=== PATIENT | female | born 1975 | race Caucasian/White ===

== ENCOUNTER 2022-05-02 16:45 | Emergency (ER) | payer BC, SELFPAY ==
[2022-05-02 17:02] VITALS: BP 140/100; PULSE 94; RESP 18; TEMP 36.9; O2SAT 97; BMI 25.0
--- NOTE | 2022-05-02 17:17 | ECG_ITS ---
[facility] Test Date: 2022-05-02 Pat Name: Diamond Hunter Department: Room: Gender: Female Physically Impaired Teacher: : 1975 Requested By: Vick Kirk Order Number: [id number] Rufus MD: Demetrio Tay M.D. Measurements Intervals [place] Rate: 93 P: 46 UT: 169 QRS: -30 QRSD: 99 T: 24 QT: 338 QTc: 422 Interpretive Statements SINUS RHYTHM POSSIBLE LEFT ATRIAL ENLARGEMENT [-0.1mV P-WAVE IN V1/V2] BORDERLINE LEFT AXIS DEVIATION [QRS AXIS < -20] LOW QRS VOLTAGE IN PRECORDIAL LEADS [QRS DEFLECTION < 1.0 mV IN CHEST LEADS] PATTERN CONSISTENT WITH PULMONARY DISEASE No previous ECG available for comparison Electronically Signed On 05-03-2022 9:21:34 CDT by Demetrio Tay M.D. [email or web address]
--- NOTE | 2022-05-02 17:18 | XRR_ITS ---
PROCEDURE INFORMATION: Exam: XR Chest Exam date and time: 05/02/2022 5:45 PM Age: 46 years old Clinical indication: Pain; Other: Mid chest; Additional info: Chest pain TECHNIQUE: Imaging protocol: XR of the chest. Views: 1 view. COMPARISON: No relevant prior studies available. FINDINGS: Lungs: Unremarkable. No consolidation. Pleural spaces: Unremarkable. No pleural effusion. No pneumothorax. Heart/Mediastinum: Unremarkable. No cardiomegaly. Bones/joints: Unremarkable. XR/XR chest 1V portable 60013 IMPRESSION: No acute findings.
--- NOTE | 2022-05-02 17:19 | W.ED.CHESTPA ---
Documented by User: Vick Resendiz DO 05/12/22 06:53 HPI - Chest Pain General: Chief Complaint: Chest Pain Stated Complaint: Chest Pains And Weakness Blood Sugar High Time Seen by Provider: 05/02/22 17:11 Source: patient Mode of arrival: ambulatory Limitations: no limitations History of Present Illness: 46-year-old female diabetes patient complaining of lower chest and upper back pain. She is generally been tired had a headache. States her blood sugars have been elevated. Significant nausea but no vomiting or diarrhea. Denies medic easy melena hematemesis cough cramps dysuria urgency or frequency. Radiation of chest pain into the back. MD complaint: chest pain Onset (ago): hour(s) Timing of current episode: episodic Onset: during rest Pain location: substernal Pain radiation: back Severity: moderate Quality: sharp Relieving factors: nothing Exacerbating factors: nothing Associated symptoms: Reports dyspnea, nausea and other (Weakness); Deny abdominal pain, diaphoresis, fever(s), leg edema, palpitations, sense of impending doom, syncope or vomiting Treatment prior to arrival: none Review of Systems Const: Denies: fever(s), chills or diaphoresis ENMT: Denies: throat pain, ear or mastoid pain, nasal discharge or nasal congestion Card: Reports: chest pain; Denies: palpitations, edema, swelling of feet/ankles or syncope Resp: Reports: dyspnea; Denies: productive cough GI: Reports: nausea; Denies: abdominal pain or vomiting : Reports: dysuria; Denies: flank pain, difficulty voiding, urinary frequency or urinary urgency Skin/Breast: Denies: rash or pruritus [facility] ED PFSH: Medical History Diabetes mellitus Hyperlipidemia Hypertension Social History Smoking and tobacco status: former smoker Physical Exam Const: GENERAL APPEARANCE: cooperative and comfortable ORIENTATION/CONSCIOUSNESS: Yes awake, Yes oriented to person, Yes oriented to place and Yes oriented to time HENMT: COMMON NORMALS: normocephalic, atraumatic and hearing grossly normal bilaterally HEAD & SCALP: normocephalic and atraumatic Neck/C-Spine: COMMON NORMALS: no JVD Resp: COMMON NORMALS: normal respiratory effort, No retractions, No use of accessory muscles and clear to auscultation bilaterally AUSCULTATION: clear to auscultation bilaterally Cardio: COMMON NORMALS: no JVD, regular rate, regular rhythm and No murmurs present (Cardio) RATE: regular rate RHYTHM: regular rhythm GI: COMMON NORMALS: Soft to palpation and No hepatosplenomegaly present AUSCULTATION: Yes normoactive bowel sounds PALPATION: Yes Soft to palpation, No Tenderness to palpation present (GI), No Guarding due to palpation present (GI) and Yes No hepatosplenomegaly present : COMMON NORMALS: Yes no CVA tenderness BLADDER/KIDNEY EXAM: Yes no CVA tenderness Back/Pelvis: COMMON NORMALS: no CVA tenderness Extremity: COMMON NORMALS: normal to inspection, capillary refill normal, no clubbing, cyanosis or edema, no calf tenderness and no pedal edema Neuro: SENSORIUM/ORIENTATION: Yes oriented to person, Yes oriented to place and Yes oriented to time Skin: COMMON NORMALS: no rashes or lesions noted GENERAL SKIN EXAM: no rashes or lesions noted Course Vital Signs: Vital signs: Vital Signs Temperature 98.1 F 05/02/22 21:50 Pulse Rate 88 05/02/22 21:50 Respiratory Rate 18 05/02/22 21:50 Blood Pressure 127/79 05/02/22 21:50 Pulse Oximetry 99 05/02/22 21:50 MDM - Chest Pain Medical Decision Making Care signed out to Dr. Hopkins at change of shift. See final notes for diagnosis and disposition. Medical Records I reviewed the patient's medical records. Lab Data I reviewed the patient's lab results. : 05/02/22 17:35 05/02/22 17:35 Radiology Impressions Chest X-Ray 05/02/22 17:18 IMPRESSION: No acute findings. Foot X-Ray 05/02/22 18:19 IMPRESSION: 1. Negative for fracture or dislocation. 2. Distal Achilles tendon degenerative calcification. 3. Small calcified heel spur. Laboratory Results WBC 8.4 10^3/uL (4.0-10.0) 05/02/22 17:35 RBC 4.60 10^6/uL (4.1-5.3) 05/02/22 17:35 Hgb 13.2 g/dL (11.5-15.3) 05/02/22 17:35 Hct 39.6 % (37.0-47.0) 05/02/22 17:35 MCV 86.1 fl (81-99) 05/02/22 17:35 MCH 28.7 pg (28.0-34.0) 05/02/22 17:35 MCHC 33.3 g/dL (30.0-36.0) 05/02/22 17:35 RDW 13.0 % (12.1-15.1) 05/02/22 17:35 Plt Count 264 10^3/cmm (130-400) 05/02/22 17:35 MPV 10.3 fL (7.4-10.4) 05/02/22 17:35 Neut % (Auto) 68.3 % 05/02/22 17:35 Lymph % (Auto) 20.6 % 05/02/22 17:35 [place] % (Auto) 8.6 % 05/02/22 17:35 Eos % (Auto) 1.6 % 05/02/22 17:35 Baso % (Auto) 0.5 % 05/02/22 17:35 Neut # (Auto) 5.73 10^3/uL (1.8-7.7) 05/02/22 17:35 Lymph # (Auto) 1.7 10^3/uL (0.8-4.8) 05/02/22 17:35 [place] # (Auto) 0.7 10^3/uL (0.2-0.9) 05/02/22 17:35 Eos # (Auto) 0.1 10^3/uL (0.0-0.8) 05/02/22 17:35 Baso # (Auto) 0.0 10^3/uL (0.0-0.1) 05/02/22 17:35 Nucleated RBC % (auto) 0 % 05/02/22 17:35 Nucleated RBCs # 0.0 /100WBC 05/02/22 17:35 Specimen Type Arterial 05/02/22 17:15 Sample Site Brachial, left 05/02/22 17:15 ABG pH 7.43 (7.35-7.45) 05/02/22 17:15 ABG pCO2 38.4 mmHg (35-45) 05/02/22 17:15 ABG pO2 68.4 mmHg (80.0-100.0) L 05/02/22 17:15 ABG HCO3 25.3 mmol/L (22-26) 05/02/22 17:15 ABG O2 Saturation 93.2 05/02/22 17:15 ABG Base Excess 0.9 mmol/L (-2.0-2.0) 05/02/22 17:15 Dao Test N/a 05/02/22 17:15 A-a O2 Gradient 4.3 mmHg (5-10) L 05/02/22 17:15 Hematocrit 40.6 % (37-47) 05/02/22 17:15 Hgb O2 Saturation 91.9 % (95-100) L 05/02/22 17:15 Carboxyhemoglobin 0.3 %THgb (0.4-20.1) L 05/02/22 17:15 Methemoglobin 1.0 % (0.4-1.5) 05/02/22 17:15 Total Hemoglobin 13.3 g/dL (12-16) 05/02/22 17:15 Sodium 139.0 mmol/L (131-143) 05/02/22 17:15 Potassium 3.5 mmol/L (3.5-5.0) 05/02/22 17:15 Glucose 300.0 mg/dL (70-115) H 05/02/22 17:15 Ionized Calcium 1.2 mmol/L (1.1-1.4) 05/02/22 17:15 O2 Delivery Device Room air 05/02/22 17:15 Fire Sprinkler Fitter ID Gd 05/02/22 17:15 Sodium 136 mmol/L (136-145) 05/02/22 17:35 Potassium 3.6 mmol/L (3.5-5.1) 05/02/22 17:35 Chloride 100 mmol/L (98-107) 05/02/22 17:35 Carbon Dioxide 23 mmol/L (22-29) 05/02/22 17:35 Anion Gap 16.6 (5-19) 05/02/22 17:35 BUN 8 mg/dL (6-20) 05/02/22 17:35 Creatinine 0.5 mg/dL (0.5-0.9) 05/02/22 17:35 GFR Calculation 133.4 mL/min (90-130) H 05/02/22 17:35 Glucose 292 mg/dL (65-115) H 05/02/22 17:35 POC Glucose 189 mg/dL (70-110) H 05/02/22 19:11 Calculated Osmolality 291 mOsm/kg (285-295) 05/02/22 17:35 Calcium 9.1 mg/dL (8.5-10.5) 05/02/22 17:35 Total Bilirubin 0.5 mg/dL (0.15-1.2) 05/02/22 17:35 AST 15 U/L (0-32) 05/02/22 17:35 ALT 17 U/L (0-33) 05/02/22 17:35 Alkaline Phosphatase 72 IU/L (35-105) 05/02/22 17:35 Troponin T Baseline 6 ng/L (0-10) 05/02/22 17:35 Troponin T 120 Minute 6.00 ng/L (0-10) 05/02/22 19:27 Delta Troponin T 0 ABS# (0-10) 05/02/22 19:27 Total Protein 6.7 g/dL (6.6-8.7) 05/02/22 17:35 Albumin 4.1 g/dL (3.5-5.2) 05/02/22 17:35 Globulin 2.6 g/dL (1.3-4.6) 05/02/22 17:35 Lipase 39 U/L (13-60) 05/02/22 17:35 Urine Color Yellow (Yellow) 05/02/22 18:10 Urine Appearance Sl hazy (CLEAR) 05/02/22 18:10 Urine pH 5 (5-7) 05/02/22 18:10 Ur Specific [place] 1.015 (1.005-1.030) 05/02/22 18:10 Urine Protein Neg (Negative) 05/02/22 18:10 Urine Glucose (UA) 4+ (Normal) H 05/02/22 18:10 Urine Ketones 1+ (Negative) H 05/02/22 18:10 Urine Blood Neg (Negative) 05/02/22 18:10 Urine Nitrate Positive (Negative) H 05/02/22 18:10 Urine Bilirubin Neg (Negative) 05/02/22 18:10 Urine Urobilinogen Norm mg/dL (Negative) 05/02/22 18:10 Ur Leukocyte Esterase Negative (Negative) 05/02/22 18:10 Urine RBC 0-4 /hpf (0-2) H 05/02/22 18:10 Urine WBC 25-40 /hpf (0-5) H 05/02/22 18:10 Ur Squamous Epith Cells 5-10 /hpf (0-5) H 05/02/22 18:10 Amorphous Sediment Not Reportable 05/02/22 18:10 Urine Bacteria 4+ /hpf (NONE) H 05/02/22 18:10 Serum Ketones Negative (Negative) 05/02/22 17:35 Discharge Plan Discharge Patient Disposition: Home Clinical Impression: Chest pain, Pyelonephritis, Contusion of foot, left Prescriptions: New cefdinir 300 mg capsule 300 mg PO BID Qty: 14 0RF ondansetron 4 mg film 4 mg PO DAILY PRN (Reason: nausea and vomiting) Qty: 10 0RF hydrocodone-acetaminophen 5-325 mg tablet 1 tab PO Q8H PRN (Reason: pain) Qty: 7 0RF No Action atorvastatin 40 mg tablet 40 mg PO DAILY 0RF buspirone 5 mg tablet 5 mg PO BID 0RF levothyroxine 75 mcg tablet 75 mcg PO DAILY 0RF propranolol 10 mg tablet 10 mg PO DAILY PRN (Reason: Anxiety) 0RF Novolin R Regular U-100 Insuln 100 unit/mL solution See Rx Instructions .ROUTE .COMPLEX 0RF Rx Instructions: PER SLIDING SCALE diclofenac sodium 75 mg tablet,delayed release (DR/EC) 150 mg PO BEDTIME 0RF Tresiba FlexTouch U-100 100 unit/mL (3 mL) insulin pen 30 unit SUBCUT BEDTIME 0RF Ozempic 0.25 mg or 0.5 mg(2 mg/1.5 mL) pen injector 0.5 mg SUBCUT Q7D 0RF Rx Instructions: ON WEDNESDAYS Discharge Orders: Discharge ED (Routine); Ordered 05/02/22 Ordered By: Steve Hopkins Patient Instructions: Chest Pain (ED), Kidney Infection (ED), Opioid Safety Activity Restrictions/Additional Instructions: Watch your blood sugars closely and treat accordingly. Stay hydrated. Antibiotics as directed. Return for worsening pain despite treatment, worsening shortness of breath, fever greater than 100 despite 2-3 doses of antibiotics, vomiting liquids or medications, other concerning symptoms. Coding Level of Care Code ED Park Services Specialist for Chg Fwd Exam Comprehensive Documented by User: Steve Hopkins DO 05/03/22 17:25 HPI - Chest Pain General: Chief Complaint: Chest Pain Stated Complaint: Chest Pains And Weakness Blood Sugar High Time Seen by Provider: 05/02/22 17:11 History of Present Illness: 46-year-old female diabetes patient complaining of lower chest and upper back pain [facility] ED PFSH: Medical History Diabetes mellitus Hyperlipidemia Hypertension Social History Smoking and tobacco status: former smoker Course Vital Signs: Vital signs: Vital Signs Temperature 98.1 F 05/02/22 21:50 Pulse Rate 88 05/02/22 21:50 Respiratory Rate 18 05/02/22 21:50 Blood Pressure 127/79 05/02/22 21:50 Pulse Oximetry 99 05/02/22 21:50 MDM - Chest Pain Medical Decision Making Care signed out to Dr. Hopkins at change of shift. See final notes for diagnosis and disposition. 46-year-old female checked out to me at shift change by Dr. Resendiz. This lady complains of lower chest and back pain as well as flank pain. Her CBC is normal. Her BMP is essentially normal, save hyperglycemia which is treated in the ER. Blood gas shows normal pH of 7.43. Ketones are negative. Urinalysis shows significant urinary tract infection. Chest x-ray shows no acute findings. This is likely pyelonephritis causing her flank and back pain as well as lower chest pain. She is nontachycardic, not hypoxic. She stubbed her foot in the ER, and foot x-rays obtained showing no fracture or dislocation. She is treated with IV fluid resuscitation and Rocephin here. She will go home on cefdinir, improved control of her blood sugar, etc. Her troponin remained normal at 2 hours. Her EKG did not show any ST findings. Lab Data : 05/02/22 17:35 05/02/22 17:35 Radiology Impressions Chest X-Ray 05/02/22 17:18 IMPRESSION: No acute findings. Foot X-Ray 05/02/22 18:19 IMPRESSION: 1. Negative for fracture or dislocation. 2. Distal Achilles tendon degenerative calcification. 3. Small calcified heel spur. Laboratory Results WBC 8.4 10^3/uL (4.0-10.0) 05/02/22 17:35 RBC 4.60 10^6/uL (4.1-5.3) 05/02/22 17:35 Hgb 13.2 g/dL (11.5-15.3) 05/02/22 17:35 Hct 39.6 % (37.0-47.0) 05/02/22 17:35 MCV 86.1 fl (81-99) 05/02/22 17:35 MCH 28.7 pg (28.0-34.0) 05/02/22 17:35 MCHC 33.3 g/dL (30.0-36.0) 05/02/22 17:35 RDW 13.0 % (12.1-15.1) 05/02/22 17:35 Plt Count 264 10^3/cmm (130-400) 05/02/22 17:35 MPV 10.3 fL (7.4-10.4) 05/02/22 17:35 Neut % (Auto) 68.3 % 05/02/22 17:35 Lymph % (Auto) 20.6 % 05/02/22 17:35 [place] % (Auto) 8.6 % 05/02/22 17:35 Eos % (Auto) 1.6 % 05/02/22 17:35 Baso % (Auto) 0.5 % 05/02/22 17:35 Neut # (Auto) 5.73 10^3/uL (1.8-7.7) 05/02/22 17:35 Lymph # (Auto) 1.7 10^3/uL (0.8-4.8) 05/02/22 17:35 [place] # (Auto) 0.7 10^3/uL (0.2-0.9) 05/02/22 17:35 Eos # (Auto) 0.1 10^3/uL (0.0-0.8) 05/02/22 17:35 Baso # (Auto) 0.0 10^3/uL (0.0-0.1) 05/02/22 17:35 Nucleated RBC % (auto) 0 % 05/02/22 17:35 Nucleated RBCs # 0.0 /100WBC 05/02/22 17:35 Specimen Type Arterial 05/02/22 17:15 Sample Site Brachial, left 05/02/22 17:15 ABG pH 7.43 (7.35-7.45) 05/02/22 17:15 ABG pCO2 38.4 mmHg (35-45) 05/02/22 17:15 ABG pO2 68.4 mmHg (80.0-100.0) L 05/02/22 17:15 ABG HCO3 25.3 mmol/L (22-26) 05/02/22 17:15 ABG O2 Saturation 93.2 05/02/22 17:15 ABG Base Excess 0.9 mmol/L (-2.0-2.0) 05/02/22 17:15 Dao Test N/a 05/02/22 17:15 A-a O2 Gradient 4.3 mmHg (5-10) L 05/02/22 17:15 Hematocrit 40.6 % (37-47) 05/02/22 17:15 Hgb O2 Saturation 91.9 % (95-100) L 05/02/22 17:15 Carboxyhemoglobin 0.3 %THgb (0.4-20.1) L 05/02/22 17:15 Methemoglobin 1.0 % (0.4-1.5) 05/02/22 17:15 Total Hemoglobin 13.3 g/dL (12-16) 05/02/22 17:15 Sodium 139.0 mmol/L (131-143) 05/02/22 17:15 Potassium 3.5 mmol/L (3.5-5.0) 05/02/22 17:15 Glucose 300.0 mg/dL (70-115) H 05/02/22 17:15 Ionized Calcium 1.2 mmol/L (1.1-1.4) 05/02/22 17:15 O2 Delivery Device Room air 05/02/22 17:15 Fire Sprinkler Fitter ID Gd 05/02/22 17:15 Sodium 136 mmol/L (136-145) 05/02/22 17:35 Potassium 3.6 mmol/L (3.5-5.1) 05/02/22 17:35 Chloride 100 mmol/L (98-107) 05/02/22 17:35 Carbon Dioxide 23 mmol/L (22-29) 05/02/22 17:35 Anion Gap 16.6 (5-19) 05/02/22 17:35 BUN 8 mg/dL (6-20) 05/02/22 17:35 Creatinine 0.5 mg/dL (0.5-0.9) 05/02/22 17:35 GFR Calculation 133.4 mL/min (90-130) H 05/02/22 17:35 Glucose 292 mg/dL (65-115) H 05/02/22 17:35 POC Glucose 189 mg/dL (70-110) H 05/02/22 19:11 Calculated Osmolality 291 mOsm/kg (285-295) 05/02/22 17:35 Calcium 9.1 mg/dL (8.5-10.5) 05/02/22 17:35 Total Bilirubin 0.5 mg/dL (0.15-1.2) 05/02/22 17:35 AST 15 U/L (0-32) 05/02/22 17:35 ALT 17 U/L (0-33) 05/02/22 17:35 Alkaline Phosphatase 72 IU/L (35-105) 05/02/22 17:35 Troponin T Baseline 6 ng/L (0-10) 05/02/22 17:35 Troponin T 120 Minute 6.00 ng/L (0-10) 05/02/22 19:27 Delta Troponin T 0 ABS# (0-10) 05/02/22 19:27 Total Protein 6.7 g/dL (6.6-8.7) 05/02/22 17:35 Albumin 4.1 g/dL (3.5-5.2) 05/02/22 17:35 Globulin 2.6 g/dL (1.3-4.6) 05/02/22 17:35 Lipase 39 U/L (13-60) 05/02/22 17:35 Urine Color Yellow (Yellow) 05/02/22 18:10 Urine Appearance Sl hazy (CLEAR) 05/02/22 18:10 Urine pH 5 (5-7) 05/02/22 18:10 Ur Specific [place] 1.015 (1.005-1.030) 05/02/22 18:10 Urine Protein Neg (Negative) 05/02/22 18:10 Urine Glucose (UA) 4+ (Normal) H 05/02/22 18:10 Urine Ketones 1+ (Negative) H 05/02/22 18:10 Urine Blood Neg (Negative) 05/02/22 18:10 Urine Nitrate Positive (Negative) H 05/02/22 18:10 Urine Bilirubin Neg (Negative) 05/02/22 18:10 Urine Urobilinogen Norm mg/dL (Negative) 05/02/22 18:10 Ur Leukocyte Esterase Negative (Negative) 05/02/22 18:10 Urine RBC 0-4 /hpf (0-2) H 05/02/22 18:10 Urine WBC 25-40 /hpf (0-5) H 05/02/22 18:10 Ur Squamous Epith Cells 5-10 /hpf (0-5) H 05/02/22 18:10 Amorphous Sediment Not Reportable 05/02/22 18:10 Urine Bacteria 4+ /hpf (NONE) H 05/02/22 18:10 Serum Ketones Negative (Negative) 05/02/22 17:35 Discharge Plan Discharge Patient Disposition: Home Clinical Impression: Chest pain, Pyelonephritis, Contusion of foot, left Prescriptions: New cefdinir 300 mg capsule 300 mg PO BID Qty: 14 0RF ondansetron 4 mg film 4 mg PO DAILY PRN (Reason: nausea and vomiting) Qty: 10 0RF hydrocodone-acetaminophen 5-325 mg tablet 1 tab PO Q8H PRN (Reason: pain) Qty: 7 0RF No Action atorvastatin 40 mg tablet 40 mg PO DAILY 0RF buspirone 5 mg tablet 5 mg PO BID 0RF levothyroxine 75 mcg tablet 75 mcg PO DAILY 0RF propranolol 10 mg tablet 10 mg PO DAILY PRN (Reason: Anxiety) 0RF Novolin R Regular U-100 Insuln 100 unit/mL solution See Rx Instructions .ROUTE .COMPLEX 0RF Rx Instructions: PER SLIDING SCALE diclofenac sodium 75 mg tablet,delayed release (DR/EC) 150 mg PO BEDTIME 0RF Tresiba FlexTouch U-100 100 unit/mL (3 mL) insulin pen 30 unit SUBCUT BEDTIME 0RF Ozempic 0.25 mg or 0.5 mg(2 mg/1.5 mL) pen injector 0.5 mg SUBCUT Q7D 0RF Rx Instructions: ON WEDNESDAYS Discharge Orders: Discharge ED (Routine); Ordered 05/02/22 Ordered By: Steve Hopkins Patient Instructions: Chest Pain (ED), Kidney Infection (ED), Opioid Safety Activity Restrictions/Additional Instructions: Watch your blood sugars closely and treat accordingly. Stay hydrated. Antibiotics as directed. Return for worsening pain despite treatment, worsening shortness of breath, fever greater than 100 despite 2-3 doses of antibiotics, vomiting liquids or medications, other concerning symptoms. Coding Level of Care Code ED Park Services Specialist for Armida Rivers Exam Comprehensive
[2022-05-02 17:31] LABS: ABG PCO2 38.4 mmHg (35-45); ABG PH Result 7.43 (7.35-7.45); Alveolar-Arterial Oxygen Gradi 4.3 mmHg (5-10); Arterial Blood Gas Hematocrit 40.6 % (37-47); Base Excess ABG 0.9 mmol/L (-2.0-2.0); Blood Gas Operator Identificat GD; Blood Gas Sample Site Brachial, left; Blood Gas Sample Type Arterial; Carboxyhemoglobin 0.3 %THgb (0.4-20.1); HCO3 ABG 25.3 mmol/L (22-26); HGB O2 Sat 91.9 % (95-100); Ionized Calcium Level - ABG 1.2 mmol/L (1.1-1.4); Oxygen Device ROOM AIR; Oxygen Saturation ABG 93.2; PO2 ABG 68.4 mmHg (80.0-100.0); Potassium Level - ABG 3.5 mmol/L (3.5-5.0); Total Hemoglobin 13.3 g/dL (12-16)
[2022-05-02 17:46] LABS: Glucose Point of Care 299 mg/dL (70-110)
[2022-05-02 17:48] LABS: Basophils % 0.5 %; Eosinophils # 0.1 10^3/uL (0.0-0.8); Eosinophils % 1.6 %; Hematocrit 39.6 % (37.0-47.0); Hemoglobin 13.2 g/dL (11.5-15.3); Lymphocytes # 1.7 10^3/uL (0.8-4.8); Lymphocytes % 20.6 %; Mean Corpuscular HGB Conc 33.3 g/dL (30.0-36.0); Mean Corpuscular Hemoglobin 28.7 pg (28.0-34.0); Mean Corpuscular Volume 86.1 fl (81-99); Mean Platelet Volume 10.3 fL (7.4-10.4); Monocytes # 0.7 10^3/uL (0.2-0.9); Monocytes % 8.6 %; Neutrophils # 5.73 10^3/uL (1.8-7.7); Neutrophils % 68.3 %; Nucleated Red Blood Cells % 0 %; Platelet Count 264 10^3/cmm (130-400); White Blood Count 8.4 10^3/uL (4.0-10.0)
--- NOTE | 2022-05-02 17:48 | PC.NURSE ---
Patient placed on continuous SPO2, NIBP, and cardiac monitoring.
[2022-05-02] MEDS: sodium chloride 0.9% 1,000 ML 999 ML IV (17:49)
[2022-05-02 18:03] LABS: Ketone (Acetest) Serum Negative (Negative)
[2022-05-02] MEDS: insulin regular-human 100 units/1 mL 15 UNIT IVP (18:09)
[2022-05-02 18:11] LABS: Alanine Aminotransferase 17 U/L (0-33); Albumin Level 4.1 g/dL (3.5-5.2); Alkaline Phosphatase 72 IU/L (35-105); Anion Gap 16.6 (5-19); Aspartate Amino Transferase 15 U/L (0-32); Blood Urea Nitrogen 8 mg/dL (6-20); Calcium 9.1 mg/dL (8.5-10.5); Carbon Dioxide 23 mmol/L (22-29); Chloride 100 mmol/L (98-107); Globulin 2.6 g/dL (1.3-4.6); Glomerular Filtration Rate 133.4 mL/min (90-130); Glucose 292 mg/dL (65-115); Lipase 39 U/L (13-60); Osmolality Calculated 291 mOsm/kg (285-295); Potassium 3.6 mmol/L (3.5-5.1); Sodium 136 mmol/L (136-145); Total Bilirubin 0.5 mg/dL (0.15-1.2); Total Protein 6.7 g/dL (6.6-8.7)
[2022-05-02 18:12] LABS: Troponin(5th) Baseline 6 ng/L (0-10)
--- NOTE | 2022-05-02 18:19 | XRR_ITS ---
PROCEDURE INFORMATION: Exam: XR Left Foot Exam date and time: 05/02/2022 6:28 PM Age: 46 years old Clinical indication: Injury or trauma; Other: Stubbed pinky toe; Blunt trauma; Toes; Left lesser toe(s) TECHNIQUE: Imaging protocol: XR Left foot. Views: 3 or more views. COMPARISON: No relevant prior studies available. FINDINGS: Bones/joints: Distal Achilles tendon degenerative calcification. Small calcified heel spur. Soft tissues: Normal. XR/XR foot LT min 3V* 10846 IMPRESSION: 1. Negative for fracture or dislocation. 2. Distal Achilles tendon degenerative calcification. 3. Small calcified heel spur.
--- NOTE | 2022-05-02 18:23 | PC.NURSE ---
Patient ambulated to bathroom and hit her left fifth toe when walking outdoor. Patient now complains of pain and swelling to left toe. Inform Dr. Vasuqez he verbalized understanding. Stated he would order a left foot x-ray. Patient in bed like is provided. Patient does not verbalize any further needs at this time.
[2022-05-02 18:42] LABS: Add Urine Culture? Yes; Add Urine Microscopic? YES; Bacteria Urine 4+ /hpf; Bilirubin Urine Neg (Negative); Blood Urine Neg (Negative); Glucose Urine UA 4+ (Normal); Ketones Urine 1+ (Negative); Leukocyte Esterase Urine Negative (Negative); Nitrate Urine Positive (Negative); Protein Urine Neg (Negative); RBC Urine 0-4 /hpf (0-2); Specific Gravity, Urine 1.015 (1.005-1.030); Urine Appearance SL Hazy (CLEAR); Urine Color Yellow (Yellow); Urobilinogen Urine Norm (Negative); WBC Urine 25-40 /hpf (0-5); pH Urine 5 (5-7)
--- NOTE | 2022-05-02 19:12 | PC.NURSE ---
While at bedside patient provided with water per Dr. Hopkins's verbal order. Patient's blood sugar checked and is 189.
--- NOTE | 2022-05-02 19:17 | ECG_ITS ---
[facility] Test Date: 2022-05-02 Pat Name: Diamond Hunter Department: Room: Gender: Female Registered Dietetic Technician: : 1975 Requested By: Vick Kirk Order Number: [id number] Rufus MD: Demetrio Tay M.D. Measurements Intervals [place] Rate: 91 P: 51 ND: 170 QRS: -20 QRSD: 107 T: 21 QT: 332 QTc: 408 Interpretive Statements SINUS RHYTHM POSSIBLE LEFT ATRIAL ENLARGEMENT [-0.1mV P-WAVE IN V1/V2] LOW QRS VOLTAGE IN PRECORDIAL LEADS [QRS DEFLECTION < 1.0 mV IN CHEST LEADS] PATTERN CONSISTENT WITH PULMONARY DISEASE Compared to ECG 05/02/2022 17:18:43 No significant changes Electronically Signed On 05-03-2022 9:27:14 CDT by Demetrio Tay M.D. [email or web address]
[2022-05-02] MEDS: cefTRIAXone 1,000 MG in sodium chloride 0.9% (plus) 50 ML 100 MG IV (19:19)
[2022-05-02 19:59] LABS: Troponin 5 2HR Delta 0 ABS# (0-10)
[2022-05-02 20:24] VITALS: RESP 18
[2022-05-02] MEDS: ondansetron 2 mg/ML SDV 2 mL 4 MG IVP (20:24)
[2022-05-02] MEDS: morphine 4 mg/mL SDV 1 mL IVP (20:24)
[2022-05-02 20:26] VITALS: BP 147/93; PULSE 96; RESP 18; O2SAT 18
[2022-05-02 21:50] VITALS: BP 127/79; PULSE 88; RESP 18; TEMP 36.7; O2SAT 99
[2022-05-03 07:00] LABS: Glucose Point of Care 189 mg/dL (70-110)
== END 2022-05-02 21:51 | disposition home or self-care (01) ==
PROVIDERS: Family Medicine; Emergency Provider Emergency Medicine
DX: N12 Tubulo-interstitial nephritis, not specified as acute or chronic (principal); E11.65 Type 2 diabetes mellitus with hyperglycemia; S90.32XA Contusion of left foot, initial encounter; W22.8XXA Striking against or struck by other objects, initial encounter; Y92.238 Other place in hospital as the place of occurrence of the external cause; R07.9 Chest pain, unspecified; I10 Essential (primary) hypertension; R11.0 Nausea
CPT/HCPCS: 36416; 36600; 71045; 73630; 80051; 80053; 81001; 82009; 82330; 82805; 82962; 83690; 84484; 85025; 87077; 87086; 87186; 93005; 96365; 96375; 99285; J0696; J1815; J2270; J2405; J7030

== ENCOUNTER → 2025-07-16 10:01 | Outpatient (BNVA) | payer OTHER, SELFPAY | PROVIDERS: Referring Provider Physician Assistant; Visit Provider Internal Medicine | DX: E11.9 Type 2 diabetes mellitus without complications (principal); E03.9 Hypothyroidism, unspecified | CPT/HCPCS: 36415; 80053; 80061; 82044; 83036; 83516; 83690; 84439; 84443; 86376; 86800 ==

== ENCOUNTER 2025-10-15 08:09 | Outpatient (CLI) | payer OTHER, SELFPAY ==
[2025-10-15 09:58] LABS: Creatinine Urine, Random 30 mg/dL (28-217)
[2025-10-15 10:01] LABS: Alanine Aminotransferase 10 U/L (0-33); Albumin Level 4.7 g/dL (3.5-5.2); Alkaline Phosphatase 109 U/L (35-105); Anion Gap 19.7 (5-19); Aspartate Amino Transferase 15 U/L (0-32); Blood Urea Nitrogen 11 mg/dL (6-20); Calcium 9.8 mg/dL (8.5-10.5); Carbon Dioxide 25 mmol/L (22-29); Chloride 95 mmol/L (98-107); Cholesterol 409 mg/dL (0-200); Free T4 Free Thyroxine 0.60 ng/dL (0.82-1.77); Globulin 3.4 g/dL (1.3-4.6); Glucose 324 mg/dL (65-115); HDL Cholesterol 34 mg/dL (60-100); Osmolality Calculated 294 mOsm/kg (285-295); Potassium 3.7 mmol/L (3.5-5.1); Sodium 136 mmol/L (136-145); Thyroid Stimulating Hormone 30.48 uIU/mL (0.27-4.20); Total Protein 8.1 g/dL (6.6-8.7)
[2025-10-15 10:02] LABS: Microalbum Creatinine Ratio Ur 200 mg/dL (0-20)
[2025-10-15 10:15] LABS: Estmated Average Glucose 309; Hemoglobin A1C 12.4 % (4.0-6.0)
[2025-10-15 10:17] LABS: Triglycerides 1524 mg/dL (0-150)
== END 2025-10-15 08:10 | disposition home or self-care (01) ==
PROVIDERS: PCP Physician Assistant; Visit Provider Internal Medicine
DX: E11.9 Type 2 diabetes mellitus without complications (principal); E03.9 Hypothyroidism, unspecified
CPT/HCPCS: 36415; 80053; 80061; 82044; 83036; 83721; 84439; 84443